=== PATIENT | male | born 1995 ===

== ENCOUNTER 2020-03-20 01:36 | Emergency (ER) | payer SELFPAY ==
[~2020-03-20] VITALS: Ht 185.4 cm; Wt 65.6 kg
[2020-03-20 01:39] VITALS: BP 120/92
--- NOTE | 2020-03-20 02:32 | NUR ---
patient signed AMA form and left.
== END 2020-03-20 04:15 | disposition left against medical advice (07) ==
LOC: ED 03:00
DX: R06.02 Shortness of breath (principal); Z53.21 Procedure and treatment not carried out due to patient leaving prior to being seen by health care provider